=== PATIENT | male | born 1970 | race Caucasian/White ===

== ENCOUNTER 2022-12-26 19:25 | Outpatient (REF) | payer SELFPAY ==
[2022-12-27 12:36] LABS: Chlamydia Result Negative (Negative); GC Result Negative (Negative)
== END 2022-12-26 19:26 | disposition home or self-care (01) ==
LOC: LBN 19:25
PROVIDERS: Visit Provider Family Medicine
DX: Z11.3 Encounter for screening for infections with a predominantly sexual mode of transmission (principal)
CPT/HCPCS: 87491; 87591